=== PATIENT | female | born 1985 | race Two or more races ===

== ENCOUNTER 2024-04-28 13:58 | Outpatient (RCR) | payer BC, MEDICAID, SELFPAY ==
--- NOTE | 2024-04-28 15:13 | PT.OIERPT ---
PT OP Initial Eval Patient Information Outpatient Physical Therapy Treatment Date: 04/28/24 Visit Reasons: Cervical Region Medical Diagnosis: M40.292 Treatment Dx #1: Neck Pain Treatment Dx #2: Abnormal Posture Start of Care: 04/28/24 Date of Onset: 7 years ago Smoking Status Smoking Status: Never smoker Initial Assessment Subjective: Pt is a 38 y/o female reports of chronic neck pain with intermittent numbness down the middle and ring finger R>L. Pt's c/s xray showed cervical thoracic dextroscoliosis of 10 deg and c/s kyphosis. No MRI has been done thus far. Pt has limitation with sleeping, sitting, standing, chores, self care, and work duties. Objective: C/S AROM: all motions are WFL with end range into extension, left sidebending BUE AROM: all motions are WNL BUE MMTs: grossly 3+/5 Scapula MMTs: grossly 3/5 Palpation: hypomobile C5-C7 facets Assessment: Pt demonstrate c/s mobility deficits with pain leading to difficulty with ADLs. Pt will attempt physical therapy if pain persist Pt will be refer back to provider for further consultation. Short Term and Career Information Specialist Goals 1) Decrease neck pain to 2/10 in 6 wks to be able to sleep more than 4 hrs 2) Increase c/s AROM WFL in 6 wks to be able to perform work duties 3) Increase BUE MMTs grossly 4-/5 in 6 wks to be able to perform lifting activities 4) Indep with HEP Treatment Plan 1) Manual Therapy 2) Therapeutic Activities 3) Therapeutic Exercises 4) Modalities (ice, heat, traction) Frequency and Duration: 2 x wk for 6 wks Certification Dates: 04/28/24 to 07/26/24 Procedure Charges OP PT Eval Mod Complex 30 minutes: Yes
== END 2024-04-28 23:59 | disposition home or self-care (01) ==
LOC: CPTX 13:58
PROVIDERS: PCP Physician Assistant; Referring Provider Physician Assistant; Visit Provider Physician Assistant
DX: M54.2 Cervicalgia (principal); R20.0 Anesthesia of skin; M41.84 Other forms of scoliosis, thoracic region; M40.292 Other kyphosis, cervical region
CPT/HCPCS: 97162

== ENCOUNTER 2024-05-26 15:00 | Outpatient (RCR) | payer BC, MEDICAID, SELFPAY ==
--- NOTE | 2024-05-05 15:22 | PT.ODAYNRPT ---
PT Outpatient Daily Note OP Daily Note Outpatient Physical Therapy Treatment Date: 05/05/24 Visit Reasons: neck pain Subjective: Pt's neck continues to hurt with pain down the arms. Objective: Please see flow chart for list of ther ex performed Assessment: difficulty completing nerve floss on the right UE due to pain, however, able to complete instructed reps. Decrease neck pain post PT session Plan: Continue with PT Length of Time (minutes) of Treatment: 30 Minutes Procedure Charges Therapeutic Exercise 30 minutes: Yes
--- NOTE | 2024-05-17 13:53 | PT.ODAYNRPT ---
PT Outpatient Daily Note OP Daily Note Outpatient Physical Therapy Treatment Date: 05/17/24 Visit Reasons: neck pain Subjective: Pt's neck was really sore after last session. Pt wants to try the jet ski mechanic traction but with less pressure. Objective: Please see flow chart for list of ther ex performed Assessment: decrease neck pain post PT session. Pt exhibit improved upper trape flexibility Plan: Continue with PT Length of Time (minutes) of Treatment: 30 Minutes Procedure Charges Therapeutic Exercise 15 minutes: Yes Manual Energy And Conservation Technician 15 minutes: Yes
--- NOTE | 2024-05-24 15:25 | PTNOTE_ITS ---
PT Outpatient Daily Note OP Daily Note Outpatient Physical Therapy Treatment Date: 05/24/24 Visit Reasons: neck pain Subjective: Pt the traction seems to help. Pt notice less pressure in the shoulder and neck. Pt share that she has a stressful living environment due to having 2 kids possible on the spectrum. Objective: Please see flow chart for list of ther ex performed Assessment: UE symptoms and pain decrease post PT session. Progressing patient to more scapula strengthening exercises with good tolerance Plan: Continue with PT Length of Time (minutes) of Treatment: 30 Minutes Procedure Charges Therapeutic Exercise 15 minutes: Yes Manual Edger Tailer 15 minutes: Yes
--- NOTE | 2024-05-26 15:30 | PT.ODAYNRPT ---
PT Outpatient Daily Note OP Daily Note Outpatient Physical Therapy Treatment Date: 05/26/24 Visit Reasons: neck pain Subjective: Pt c/o neck and upper trap region. Objective: Please see flow sheet for ther ex list. Assessment: Pt instructed on interventions for postural strengthening, encouraged to perform for HEP pt agreed. Plan: Continue with poC. Length of Time (minutes) of Treatment: 30 Minutes Procedure Charges Therapeutic Exercise 30 minutes: Yes
== END 2024-05-29 23:59 | disposition home or self-care (01) ==
LOC: CPTX 15:00
PROVIDERS: PCP Physician Assistant; Referring Provider Physician Assistant; Visit Provider Physician Assistant
DX: M54.2 Cervicalgia (principal); M41.84 Other forms of scoliosis, thoracic region; M40.292 Other kyphosis, cervical region
CPT/HCPCS: 97110; 97140

== ENCOUNTER 2024-05-31 08:04 | Outpatient (RCR) | payer BC, MEDICAID, SELFPAY ==
--- NOTE | 2024-05-31 16:05 | PT.ODS1RPT ---
PT OP Progress/Discharge Note Date of Service: 05/31/24 Progress Note/DC Note Progress Note/Discharge Note: DC Note Patient Information Visit Reasons: NECK PAIN Medical Diagnosis: M40.292 Treatment Dx #1: Neck Pain Service Continue Service or Discharge: Discharge Discharge Date: 05/31/24 Status Subjective: Pt's neck continues to hurt and notice more numbness down her fingers lately. Physical therapy has helped short term. Pt has limitation with work, chores, self care, taking care of her children, and recreational activities. Objective: C/S AROM: all motions are WNL with pain BUE AROM: all motions are WNL BUE MMTs: grossly 3+/5 Scapula MMTs: grossly 3+/5 Assessment: Pt demonstrate slight improvement with c/c mobility, however, no change in overall pain and radicular symptoms leading to difficulty with ADLs. Pt will benefit from MRI to help rule in/out nature of pain. Pt was instructed on HEP last session and educated to continue exercises to maintain overall mobility. Pt performed all exercises safely, thank you for your referrals. Plan: D/C home with HEP and follow up with MD REED Recommend c/s MRI Procedure Charges Traction Mechanical: Yes Therapeutic Exercise 15 minutes: Yes
== END 2024-06-28 23:59 | disposition home or self-care (01) ==
LOC: CPTX 08:04
PROVIDERS: PCP Physician Assistant; Referring Provider Physician Assistant; Visit Provider Physician Assistant
DX: M54.2 Cervicalgia (principal); R20.0 Anesthesia of skin; M41.82 Other forms of scoliosis, cervical region; M40.292 Other kyphosis, cervical region
CPT/HCPCS: 97012; 97110

== ENCOUNTER 2024-07-03 15:03 | Emergency (ER) | payer BC, MEDICAID, SELFPAY ==
[2024-07-03 15:05] VITALS: BMI 50.1
[2024-07-03 15:12] VITALS: BP 143/82; PULSE 92; RESP 18; TEMP 37.3; O2SAT 98
--- NOTE | 2024-07-03 15:23 | XR_ITS ---
Examination: Venous duplex lower extremity sonogram, bilateral. Date and time of exam: July 03, 2024 1535 hours INDICATIONS: Bilateral leg swelling and burning sensation beginning 3 days ago Technique: Multiple sonographic images of the deep venous system have been obtained. B-mode/2-D grayscale imaging of vascular structures and Doppler spectral analysis (waveforms) and color performed Both legs are examined. Findings: Deep venous systems do not demonstrate abnormal echogenicity. All visualized deep veins exhibit compressibility. All visualized deep veins exhibit augmentation. Impression: Negative for deep vein thrombosis
--- NOTE | 2024-07-03 15:23 | XR_ITS ---
Examination: PA chest single view TECHNIQUE: Upright PA chest single view Exam date and time: July 03, 2024, 1639 hours Comparison January 01, 2023 INDICATIONS: Chest pain beginning 3 days ago. FINDINGS: Normal heart size. Lungs are clear. Osseous structures are intact. IMPRESSION: No active disease
[2024-07-03 16:50] LABS: Basophils # (Auto) 0.1 Thou/mm3 (0.0-0.2); Basophils % (Auto) 1 % (0-2.5); Eosinophils # (Auto) 0.2 Thou/mm3 (0.0-0.5); Eosinophils % (Auto) 2 % (0-10); Hematocrit 36.1 % (36.0-46.0); Hemoglobin 11.8 g/dL (12.0-16.0); Immature Granulocytes % (Auto) 0 % (0-0); Immature Granulocytes Auto 0.01 Thou/mm3 (0.00-0.00); Lymphocytes % (Auto) 27 % (10-50); Mean Corpuscular HGB Conc 32.7 g/dl (31.0-37.0); Mean Corpuscular Hemoglobin 29.2 pg (25.0-35.0); Mean Corpuscular Volume 89 fL (80-100); Monocytes # (Auto) 0.8 Thou/mm3 (0.0-0.8); Monocytes % (Auto) 11 % (0-12); Neutrophils # (Auto) 4.5 Thou/mm3 (1.8-7.7); Neutrophils % (Auto) 60 % (37-80); Nucleated Red Blood Cell % 0 /100 WBC (0); Platelet Count 383 Thou/mm3 (140-440); RDW Standard Deviation 47.8 fL (36.4-46.3); Red Blood Count 4.04 Miln/mm3 (4.00-5.20); White Blood Count 7.5 Thou/mm3 (3.6-11.0)
[2024-07-03 17:04] LABS: HCG,Qualitative Serum Negative; Partial Thromboplastin Time 28.2 Seconds (22.0-36.0); Prothrombin Time 10.6 Seconds (9.0-12.2)
[2024-07-03 17:06] LABS: B-Type Natriuretic Peptide 26 pg/mL (0-100)
[2024-07-03 17:07] LABS: Alanine Aminotransferase 53 U/L (10-49); Albumin, Serum 4.3 gm/dL (3.5-5.0); Albumin/Globulin Ratio 1.3 (1.2-2.2); Alkaline Phosphatase 145 U/L (46-116); Anion Gap 8 (7-16); Aspartate Amino Transferase 36 U/L (0-34); BUN/Creatinine Ratio 14 Ratio (12-20); Bilirubin,Total 0.8 mg/dL (0.3-1.2); Blood Urea Nitrogen 10 mg/dL (9-23); Chloride 105 mMol/L (98-107); Creatinine (Component) 0.7 mg/dL (0.6-1.3); Estimated Creatinine Clearance 118.3 mL/min (>60); Globulin 3.2 gm/dL (2.3-3.5); Glucose 99 mg/dL (74-106); Osmolality,Calculated 276 (275-295); Potassium 3.8 mMol/L (3.4-5.1); Sodium 139 mMol/L (136-145); Total Protein 7.5 gm/dL (5.7-8.2); eGFR > 60 See Note
--- NOTE | 2024-07-03 18:21 | EDNOTE_ITS ---
ED General RME/HPI General Chief complaint: General Adult/Misc Complain Stated complaint: INCREASED WATER RETENTION X2 DAYS Time Seen by Provider: 07/03/24 15:14 Arrival date/time: 07/03/24 15:03 38-year-old female presents to the emergency department for complaints of increased water retention x 2 days. Patient reports no history of patient reports no fever nausea or vomiting no chest pain or shortness of breath Limitations: no limitations Related Data Home Medications ?Medication ?Instructions ?Recorded ?Confirmed loratadine 10 mg tablet (Allergy 10 mg PO QDAY PRN All ergic Symptoms 10/30/19 09/10/21 Relief (loratadine)) prenat.vits,saadia,[id number] 1 tab PO QDAY 09/10/21 09/10/21 Previous Rx's ?Medication ?Instructions ?Recorded pantoprazole 40 mg tablet,delayed 40 mg PO QDAY #30 ta bs 01/01/23 release (Protonix) Allergies Allergy/AdvReac Type Severity Reaction Status Date / Time No Known Allergies Allergy Verified 01/01/23 17:47 Review of Systems Review of Systems Systems Reviewed: All systems reviewed, normal except as documented Constitutional Constitutional: Reports system reviewed and no additional complaints, except as documented, Denies fever(s) and Denies headache(s) Eyes Eyes: Reports system reviewed and no additional complaints, except as documented and Denies blurry vision ENT Ears, Nose, Mouth, and Throat: Reports system reviewed and no additional complaints, except as documented, Denies headache(s), Denies nasal congestion and Denies nasal discharge Cardiovascular Cardiovascular: Reports system reviewed and no additional complaints, except as documented, Denies chest pain and Denies dyspnea Respiratory Respiratory: Reports system reviewed and no additional complaints, except as documented, Denies chest congestion, Denies cough and Denies dyspnea Gastrointestinal Gastrointestinal: Reports system reviewed and no additional complaints, except as documented and Denies abdominal pain Integumentary/Breasts Skin/Breast: Reports system reviewed and no additional complaints, except as documented and Denies rash Neurologic Neurologic: Reports system reviewed and no additional complaints, except as documented, Reports as per HPI and Denies headache(s) Past Medical History Past Medical History NEUROLOGIC: Negative Neurological Disorders or Seizures CARDIAC: Negative Cardiac Disorders or Congestive Heart Failure RESPIRATORY: Negative Chronic Obstructive Pulmonary Disease (COPD) or Asthma GASTROINTESTINAL: Positive Gastrointestinal Disorders and Gall Bladder Disease GENITOURINARY: Negative Genitourinary Disorders or Renal Disease REPRODUCTIVE: Positive Previous Pregnancies; Negative Endometriosis, Genital Herpes, Gonorrhea, Pelvic Inflammatory Disease, Syphilis or Uterine Prolapse MUSCULOSKELETAL: Negative Musculoskeletal Disorders ENDOCRINE: Negative Endocrine Disorders, Diabetes Mellitus Type 1 or Diabetes Mellitus Type 2 HEMATOLOGIC: Negative Blood Disorders, Anemia, Leukemia, Hemophilia, Thalassemia, Sickle Cell Disease or Clotting Problems PSYCHO/SOCIAL: Positive Anxiety (USED TO TAKE MEDICATION BUT NOT CURRENTLY.) OTHER HISTORY: Positive Hospitalization and Chicken Pox; Negative Autoimmune Disease, Down Syndrome, Developmental Delay, Shingles, Falls, Blood Transfusions, Blood Transfusion Reaction, Anesthesia Reactions, Organ Transplant, Chemotherapy, Radiation Therapy, Hyperbaric Therapy, MRSA, VRSA, Vancomycin-Resistant Enterococci, Human Immunodeficiency Virus (HIV), Measles, Mumps, Rubella (Uzbek Measles), Pertussis, Clostridium Difficile or Cancer Family History FAMILY HISTORY: Positive Family Cardiac Disorders (MOTHER- HTN) and Family Cancer (MOTHER- CERVICAL CA.); Negative Family Psychiatric Problems, Family Respiratory Disorders, Family Gastrointestinal Problems, Family Surgery or Family Anesthesia Reaction Surgical History SURGICAL: Positive Abdominal Surgery and Section (X2); Negative Organ Transplant Social History SMOKING STATUS: Never smoker SECOND HAND EXPOSURE: No ED Exam General Limitations: Present no limitations General appearance: Present alert and in no apparent distress Head Head exam: Present atraumatic, normocephalic and normal inspection Eye Eye exam: Present normal appearance, PERRL and EOMI; Absent conjunctival injection ENT ENT exam: Present normal exam, normal oropharynx and mucous membranes moist Neck Neck exam: Present normal inspection, full ROM and trachea midline; Absent meningismus, lymphadenopathy or thyromegaly Chest Chest inspection: Present normal inspection and symmetric chest wall rise Respiratory Respiratory exam: Present normal lung sounds bilaterally; Absent respiratory distress Cardiovascular Cardiovascular exam: Present regular rate, normal rhythm and normal heart sounds Abdominal Exam Abdominal exam: Present soft and normal bowel sounds; Absent distention, tenderness, guarding, rebound or rigidity Extremities Exam Extremities exam: Present normal inspection and full ROM Back Exam Back exam: Present normal inspection and full ROM Neurological Exam Neurological exam: Present alert, oriented X3, CN II-XII intact, normal gait and reflexes normal; Absent motor sensory deficit Psychiatric Psychiatric exam: Present normal affect and normal mood Skin Skin exam: Present warm, dry, intact, normal color and rash Course Quality Measures none Orders Category Date Time Status US venous doppler LE BI Stat Exams 07/03/24 15:23 Completed XR chest 1V Stat Exams 07/03/24 15:23 Completed BNP [B-Type Natriuretic Peptide] Stat Lab 07/03/24 16:25 Completed CBC Stat Lab 07/03/24 16:25 Completed Comprehensive Metabolic Panel Stat Lab 07/03/24 16:25 Completed HCG,Qualitative Serum Stat Lab 07/03/24 16:25 Completed Partial Thromboplastin Time Stat Lab 07/03/24 16:25 Completed Prothrombin Time with INR Stat Lab 07/03/24 16:25 Completed Vital Signs Vital signs: Vital Signs Temperature 99.1 F 07/03/24 15:12 Pulse Rate 92 07/03/24 15:12 Respiratory Rate 18 07/03/24 15:12 Blood Pressure 143/82 H 07/03/24 15:12 Pulse Oximetry (%) 98 07/03/24 15:12 Oxygen Delivery Method Room Air 07/03/24 15:12 o2 sat 98% r.a wnl Discharge Plan Plan Patient Disposition: HOME (Self Care) Discharge Disposition comment: Stable Prescriptions/Referrals Prescriptions/Med Rec: No Action loratadine [Allergy Relief (loratadine)] 10 mg tablet 10 mg PO QDAY PRN (Reason: Allergic Symptoms) prenat.vits,saadia,[id number] Tablet 1 tab PO QDAY pantoprazole [Protonix] 40 mg tablet,delayed release (DR/EC) 40 mg PO QDAY Qty: 30 0RF Referrals: Ankush Lee MD [Primary Care Provider] - 07/05/24 Problem List Clinical Impression: Leg pain, bilateral Patient/Caregiver Discharge Instructions Education Materials: ED RICE Additional Instructions: Please follow up with your primary care doctor in the next 24-48hrs for any worsening symptoms return here immediately Print Language: Albanian Stand Alone Forms: [employer] Award Info., Work/School Release, Patient Portal Info Letter PA/ALTERATIONS MANAGER Supervising Physician PA/ALTERATIONS MANAGER Supervising Physician: Dr. SANDOVAL MDM Narrative MDM hospital course (for use when minimal MDM required): 38-year-old female presents to the emergency department for complaints of increased water retention x 2 days. Patient reports no history of patient reports no fever nausea or vomiting no chest pain or shortness of breath On exam patient well-appearing patient does not appear ill or toxic no acute distress Lab work and imaging obtained no acute emergent findings noted Although the patient reports she has water retention patient has no pitting edema patient's lungs are clear to auscultation Patient discharged home in no distress to follow-up with primary care doctor in the next 24 to 48 hours and for any worsening symptoms to return to the ER immediately Clinical Information Provided by: none Medical Records reviewed [facility] Meds/Rx considered, not ordered None Labs/Rad/Tests considered, not ordered Describe: Ordered and reviewed Chronic Illness/Social Conditions which may negatively complicate care or outcome(s)-explain: None or not applicable EKG EKG not done Labs Labs: Interpreted by me Lab(s) Interpretation(s): Reviewed by me Imaging Imaging interpretation: Interpreted by me Imaging Interpretation(s): Reviewed by me Medication Administration(s) none Diagnosis Differential Diagnosis ED Complaint MDM: chf`, dvt, anxiety about hela
== END 2024-07-03 18:28 | disposition home or self-care (01) ==
PROVIDERS: Nurse Practitioner Primary Care; Emergency Provider Emergency Medicine; PCP Family Medicine
DX: M79.604 Pain in right leg (principal); M79.605 Pain in left leg; R07.9 Chest pain, unspecified; R20.8 Other disturbances of skin sensation; M79.89 Other specified soft tissue disorders
CPT/HCPCS: 36415; 71045; 80053; 83880; 84703; 85025; 85610; 85730; 93970; 99284